=== PATIENT | female | born 1960 | race Caucasian/White ===

== ENCOUNTER → 2018-10-24 | Outpatient (CLI) | payer OTHER ==
--- NOTE | 2018-10-24 16:50 | PCVCIMAG ---
APPROVED REPORT Study performed: 10/24/2018 15:15:47 Exam: Stress Echocardiogram Indication: Chest pain Patient Location: Echo lab Stress Nurse: Yamile Cheney RN Room #: 2 Status: routine Ht: 5 ft 2 in HR: 86 bpm BP: 120/82 mmHg Rhythm: NSR Medical History Medical History: Hyperlipidemia Cardiac Risk Factors: Hyperlipidemia, FHX of CAD Previous Cardiac Procedures: none Pretest Chest Pain Characteristics: No chest pain Exercise History: Indeterminate Procedure The patient underwent an Exercise Stress Test using the Griffin Protocol. Blood pressure, heart rate, and EKG were monitored. An Echocardiogram was performed by geochemical laboratory technician in four stages in quad fashion. At peak stress, four selected images were obtained and placed side by side with resting images for comparison. Stress Test Details Stress Test: Exercise stress testing was performed using a Griffin protocol. HR Resting HR: 86 bpmMax Heart Rate (APMHR): 165 bpm Max HR Achieved: 166 bpmTarget HR (85% APMHR): 140 bpm % of APMHR: 100 Recovery HR: 98 bpm HR response to stress: Normal HR response to stress BP Resting BP: 120/82 mmHg Max BP: 146/80 mmHg Recovery BP: 134/74 mmHg BP response to stress: Normal blood pressure response to stress. ECG Resting ECG: Sinus Rhythm Stress ECG: Sinus Rhythm ST Change: Normal Maximum ST Deviation: 0 mm Arrhythmia: None Recovery ECG: Sinus Rhythm Recovery ST Change: Normal Recovery ST Deviation: 0 mm Recovery Arrhythmia: None Clinical Reason for Termination: Maximal effort Stress Symptoms: leg fatigue Exercise duration: 9 min 23 sec Highest Stage Achieved: Stage 4: 4.2 mph at 16% grade. Exercise capacity: 11.3 METs Overall Exercise Capacity for Age: Good Scale: Active Angina Score: None Stress ECG Conclusion The patient exercised according to the GRIFFIN protocol for 9:23 mins; achieving a work level of 11.3 METS. The resting heart rate of 78 bpm danielle to a maximum heart rate of 166 bpm. This value represent 100% of the maximal, age-predicted heart rate. The resting blood pressure of 120/82 mmHg, danielle to a maximum blood pressure of 146/80 mmHg. The exercise test was stopped due to fatigue. Gilbert Treadmill Score is 9.0 which is Low risk. Pre-Stress Echo The resting Echocardiogram showed normal left ventricular contractility with an estimated Ejection Fraction of about 55-60%. Normal wall motion in all segments on baseline images. Post-Stress Echo The stress Echocardiogram showed normal left ventricular contractility with an estimated Ejection Fraction of about 65-70%. Normal augmentation of wall motion in all segments on post stress images. Conclusion Clinical Response: Non-ischemic Exercise Capacity: Average Stress ECG Response: Non-ischemic Stress Echo Images: Non-ischemic No clinical, EKG or echocardiographic evidence for ischemia. No echocardiographic evidence for exercise induced ischemia. Normal stress echocardiogram with maximal exercise stress. No prior study available for comparison. <Conclusion> No clinical, EKG or echocardiographic evidence for ischemia. No echocardiographic evidence for exercise induced ischemia. Normal stress echocardiogram with maximal exercise stress.
== END | disposition home or self-care (01) ==
LOC: PCVCIMAG 15:02
PROVIDERS: ATTEND Family Medicine
DX: R07.9 Chest pain, unspecified (principal); E78.5 Hyperlipidemia, unspecified
CPT/HCPCS: 93325; 93351